=== PATIENT | male | born 1975 | race Asian ===

== ENCOUNTER 2019-05-06 17:56 | Emergency (ER) | payer SELFPAY ==
[~2019-05-06] VITALS: Ht 177.8 cm; Wt 73.5 kg
[2019-05-06 17:58] VITALS: BP 160/74
== END 2019-05-06 19:44 | disposition home or self-care (01) ==
LOC: ED 17:56
DX: S86.912A Strain of unspecified muscle(s) and tendon(s) at lower leg level, left leg, initial encounter (principal); R03.0 Elevated blood-pressure reading, without diagnosis of hypertension; X58.XXXA Exposure to other specified factors, initial encounter; Y93.89 Activity, other specified; Y92.89 Other specified places as the place of occurrence of the external cause; Y99.8 Other external cause status